=== PATIENT | female | born 1955 | race Caucasian/White ===

== ENCOUNTER → 2020-05-22 12:24 | Outpatient (CLI) | payer BC | END | disposition home or self-care (01) | LOC: D.US 11:30 | PROVIDERS: ATTEND Surgery | DX: R59.0 Localized enlarged lymph nodes (principal) ==

== ENCOUNTER 2020-07-02 05:43 | Day surgery (SDC) | payer BC ==
[~2020-07-02] VITALS: Ht 160 cm; Wt 57.6 kg
--- NOTE | ~2020-07-02 | OP ---
PATIENT NAME: MAUREEN MANJARREZ MEDICAL RECORD: [id number] :59 LOCATION:D.OPS ADMISSION DATE: SURGEON: TORIBIO ARIAS MD DATE OF OPERATION: 07/02/2020 PREOPERATIVE DIAGNOSES: 1. Malignant melanoma of the right posterior arm. 2. Left groin mass. 3. Tobacco dependence syndrome. 4. Hypertension. POSTOPERATIVE DIAGNOSES: 1. Malignant melanoma of the right posterior arm. 2. Left groin mass. 3. Tobacco dependence syndrome. 4. Hypertension. PROCEDURE: 1. Wide local excision of right posterior arm lipoma. 2. Right axillary sentinel lymph node biopsy. 3. Excision of 2 cm left groin lipoma. SURGEON: Toribio Arias MD REPORT OF PROCEDURE: The patient's left groin, right upper extremity and right axilla were prepped and draped in sterile fashion. Preoperatively, the patient had undergone lymphoscintigraphy showing uptake in the patient's right axilla. We approached the patient's left groin first and oblique incision was made over the soft tissue mass. Electrocautery was used to dissect through the subcutaneous tissues and we immediately encountered a lipoma. This lipoma was dissected from the surrounding tissues. The lipoma was adherent to the subcutaneous tissues. We eventually used electrocautery to free this completely up and remove the entire mass. The mass was about 2 cm in greatest diameter. We then irrigated out the wound with normal saline and reapproximated the skin with running subcutaneous 5-0 Monocryl. The posterior aspect of the right arm had a 1.5 x 2 cm lesion present consistent with melanoma. A 1 cm margin was made in all directions and we performed a sharp excision of this mass with the 1 cm margin including increased margin superiorly and inferiorly. The ovoid incision was opened up to the subcutaneous tissues with sharp dissection and then continued down to the fascia using electrocautery. We then took the lesion off of the fascia using electrocautery and sent this off for permanent specimen. We irrigated out the wound and undermined the tissue anteriorly to facilitate closure. The patient appeared to have plenty of tissue for an easy closure. We reapproximated the subcutaneous tissues with multiple interrupted 3-0 Vicryls and the skin was closed with running subcutaneous 5-0 Monocryl. We then approached the patient's right axilla. A skin incision was made transversely in the upper axilla and we were able to dissect through the subcutaneous tissues and fascia until we entered the axillary space. The patient had a clump of axillary lymph nodes, totaling 3, that all had readings of around 300. We were able to eviscerate these lymph nodes through the incision and eventually clip off the lymphatics and take these masses out. The 2 clumps of lymphatic tissue that we took out together showed readings of 350 and 315. The other smaller lymph node that was attached to the clump with 350 reading had a reading of 80. We inspected the remainder of the wound bed and did not find any evidence of any further uptake. We then irrigated out this wound and the one place that was OPERATIVE REPORT [id number] MAUREEN MANJARREZ bleeding was treated with a clip. We then reapproximated the fascia and subcutaneous tissues with interrupted 3-0 Vicryl and the skin was closed with running subcutaneous 5-0 Monocryl. A total of 10 mL of lidocaine was infused into the groin and right axillary incisions. COMPLICATIONS: None. CONDITION: Stable. ANESTHESIA: General endotracheal and local. BLOOD LOSS: 30 mL. TRANSINT:[id number] Voice Confirmation ID: [id number] DOCUMENT ID: [id number] TORIBIO ARIAS MD CC: MATEUS OVALLES ANP [id number] DICTATION DATE: 07/02/20 1211 EXOTIC DANCER: 07/02/20 1336 REG [facility] [address] [place] [address]
[~2020-07-02 05:43] MED LIST: LISINOPRIL5 MG PO; OMEPRAZOLE20 M1 PO; TIROSINT13 MCG PO
[2020-07-02 06:17] LABS: BASOPHILS 0.4 % (0-2); EOSINOPHILS 2.1 % (0-7); HEMATOCRIT 44.3 % (36.0-48.0); HEMOGLOBIN 14.4 g/dL (12-16); IMMATURE GRANULOCYTES 0.1 % (0-5); LYMPHOCYTES 23.8 % (15-50); MCH 32.8 pg (26.0-34.0); MCHC 32.5 g/dL (31.0-37.0); MCV 100.9 fL (80.0-100.0); MEAN PLATELET VOLUME 9.7 fL (7.4-10.4); MONOCYTES 10.1 % (2-11); NEUTROPHILS 63.5 % (40-80); PLATELET COUNT 305 10x3/uL (130-400); RBC 4.39 10x6/uL (4.00-5.40); RDW 13.6 % (11.5-14.5); WBC 8.9 10x3/uL (4.8-10.8)
[2020-07-02 06:21] LABS: APTT 29.4 SECONDS (22.8-39.4); INR 0.91 (0.85-1.17); PROTIME 12.3 SECONDS (11.6-15.0)
[2020-07-02 06:22] LABS: ANION GAP 7.8 mmol/L (8-16); CALCIUM 9.1 mg/dL (8.5-10.1); CARBON DIOXIDE 31.6 mmol/L (21.0-32.0); CREATININE - SERUM 0.9 mg/dL (0.6-1.3); POTASSIUM - SERUM 4.4 mmol/L (3.5-5.1)
[2020-07-02 08:27] VITALS: BP 124/68; Ht 160 cm; Wt 57.6 kg
--- NOTE | 2020-07-02 10:10 | NUR ---
[facility] medicine lymphoscintraphy for melanoma. The patient arrived to the department. Consent was obtained. Dr. Partida entered the room. A time out was called at 0940. 514uCi Tc-99m Tilmanocept was injected subcutaneously at 0940. Imaging followed.
[2020-07-02] MEDS ORDERED: HYDROCODON-ACE1 EA10 PO (12:04)
--- NOTE | 2020-07-02 18:59 | NUR ---
1410 IV REMOVED AND INSTRUCTIONS GIVEN. 1420 VOIDED
== END 2020-07-02 14:55 | disposition home or self-care (01) ==
LOC: D.NM 05:43 → D.OPS 05:43 → D.NM 08:00 → D.OPS 14:55
PROVIDERS: Anesthesiology; ATTEND Surgery
DX: C43.61 Malignant melanoma of right upper limb, including shoulder (principal); C43.9 Malignant melanoma of skin, unspecified; R19.09 Other intra-abdominal and pelvic swelling, mass and lump; F17.200 Nicotine dependence, unspecified, uncomplicated; I10 Essential (primary) hypertension